=== PATIENT | male | born 1970 | race African-American/Black ===

== ENCOUNTER 2016-07-03 10:58 | Emergency (ER) | payer OTHER ==
[~2016-07-03] VITALS: Ht 170.2 cm; Wt 96.5 kg
[2016-07-03 11:01] VITALS: Ht 170.2 cm; Wt 96.5 kg
[2016-07-03] MEDS ORDERED: LIDOCAINE/MYLANTA 40 ML BTL PO STA (11:30)
--- NOTE | 2016-07-03 11:36 | ERD ---
ER Documentation Chief Complaint Date/Time DATE: 07/03/16 TIME: 11:35 Chief Complaint upper abdominal pain this morning HPI 45-year-old male complains of upper abdominal pain associated with nausea, vomiting and diarrhea that started last night. He states that he had eaten some fish and chicken the yesterday, and subsequently had episodes of nausea vomiting that were nonbloody nonbilious. He states he has a history of gastritis and usually takes Carafate and Zofran prescribed by a different emergency department. He denies any fevers, chest pain, shortness of breath. No blood or dark stools. He does report a history of drinking about a pint daily. ROS All systems reviewed and are negative except as per history of present illness. Medications Home Meds Active Scripts Ranitidine Hcl* (Zantac*) 150 Mg Tablet, 150 MG PO BID Y for EPIGASTRIC PAIN, # 30 TAB Prov:PARUL ROA PA-C 07/03/16 Hydrocodone/Acetaminophen ([place] 5-325 Tablet) 1 Each Tablet, 1 TAB PO Q6H Y for PAIN, #7 TAB Prov:PARUL ROA PA-C 07/03/16 PMhx/Soc Medical and Surgical Hx: pt denies Medical Hx, pt denies Surgical Hx Hx Alcohol Use: No Hx Substance Use: No Hx Tobacco Use: No Smoking Status: Never smoker Physical Exam Vitals Vital Signs Date Time Temp Pulse Resp B/P Pulse Ox O2 Delivery O2 Flow Rate FiO2 07/03/16 11:01 98.6 101 20 123/79 97 Physical Exam General: Well-developed, well-nourished. The patient appears in no acute distress. HEENT: Head is normocephalic, atraumatic. No scleral icterus. Neck: Supple. Nontender. Lungs: Clear to auscultation. Normal air movement. Heart: Regular rate and rhythm. S1 and S2 are normal. No murmurs, gallops, or rubs. Abdomen: Soft, mid abdomen is tender nondistended. Bowel sounds are normoactive. There is no rebound or guarding. No McBurney's tenderness, negative Hernandez sign. Extremities: No clubbing or cyanosis. Normal pulses. Moving extremities x 4. No weakness. Neurologic: Alert and oriented 3. No focal deficits. Skin: Normal turgor. No rash or lesions. Result Diagram: 07/03/16 1150 07/03/16 1150 Results 24 hrs Laboratory Tests Test 07/03/16 11:50 White Blood Count 7.910^3/ul Red Blood Count 5.0910^6/ul Hemoglobin 15.3g/dl Hematocrit 45.1% Mean Corpuscular Volume 88.6fl Mean Corpuscular Hemoglobin 30.1pg Mean Corpuscular Hemoglobin Concent 33.9g/dl Red Cell Distribution Width 14.4% Platelet Count 57875^3/UL Mean Platelet Volume 10.1fl Neutrophils % 76.9% Lymphocytes % 16.2% Monocytes % 6.2% Eosinophils % 0.1% Basophils % 0.5% Nucleated Red Blood Cells % 0.0/100WBC Neutrophils # 6.110^3/ul Lymphocytes # 1.310^3/ul Monocytes # 0.510^3/ul Eosinophils # 0.010^3/ul Basophils # 0.010^3/ul Nucleated Red Blood Cells # 0.010^3/ul Urine Color LT. YELLOW Urine Clarity CLEAR Urine pH 6.0 Urine Specific [place] 1.025 Urine Ketones 15 Urine Nitrite NEGATIVE Urine Bilirubin NEGATIVE Urine Urobilinogen 0.2 E.U./dL Urine Leukocyte Esterase NEGATIVE Urine Microscopic RBC 2-5/HPF Urine Microscopic WBC 0-2/HPF Urine Hemoglobin TRACE Urine Glucose NEGATIVE% Urine Total Protein TRACE Sodium Level 137mmol/L Potassium Level 4.0mmol/L Chloride Level 103mmol/L Carbon Dioxide Level 23mmol/L Anion Gap 15 Blood Urea Nitrogen 11mg/dl Creatinine 1.10mg/dl Glucose Level 102mg/dl Calcium Level 9.4mg/dl Total Bilirubin 0.7mg/dl Direct Bilirubin 0.00mg/dl Indirect Bilirubin 0.7mg/dl Aspartate Amino Transf (AST/SGOT) 49IU/L Alanine Aminotransferase (ALT/SGPT) 45IU/L Alkaline Phosphatase 80IU/L Total Protein 8.6g/dl Albumin 4.7g/dl Globulin 3.90g/dl Albumin/Globulin Ratio 1.20 Lipase 47U/L Current Medications Medications (Trade) Dose Ordered Sig/Efrain Route PRN Reason Start Time Stop Time Status Last Admin Dose Admin Miscellaneous Medication (Gi Cocktail (2)) 40 ml ONCE STAT PO 07/03/16 11:30 07/03/16 11:33 DC 07/03/16 11:43 Acetaminophen/ Hydrocodone Bitart ([place] (5/325)) 1 tab ONCE ONCE PO 07/03/16 14:00 07/03/16 14:01 DC 07/03/16 13:57 Famotidine (Pepcid) 20 mg ONCE ONCE PO 07/03/16 14:00 07/03/16 14:01 DC 07/03/16 13:57 Procedures/MDM ED course: Patient was given GI cocktail, labs and urine were obtained. He has continued to have pain, and therefore was given [place], which when he states that he is feeling much better at this time and is ready to be discharged. MDM: 45-year-old male comes in with upper abdominal pains, nausea, vomiting diarrhea for the past day, likely gastroenteritis. Initially was given a GI cocktail, did continue to complain of pain and therefore he was given [place] as well as Pepcid and states that he is feeling much better at this time. His labs are unremarkable, there is no leukocytosis, no transaminitis that is significant, and no pancreatitis. The patient's abdominal examination shows mid abdominal pain and epigastric pain, nonspecific. Clinically does not appear to show any signs of an acute surgical abdominal process, include including acute appendicitis, bowel obstruction, intra-abdominal abscess, perforation, acute hepatobiliary process. He will be given a short course of [place] secondary to his pain, to supplement as well as ranitidine, and Zofran to continue as needed. Departure Diagnosis: Primary Impression: Abdominal pain Condition: PARUL Lujan PA-C July 03, 2016 11:36
[2016-07-03 12:12] LABS: ADD SCAN DIFF NO
[2016-07-03 12:13] LABS: BASOPHILS % 0.5 % (0.0-2.0); EOSINOPHILS % 0.1 % (0.0-7.0); HEMATOCRIT 45.1 % (42.0-52.0); HEMOGLOBIN 15.3 g/dl (14.0-18.0); LYMPHOCYTES # 1.3 10^3/ul (0.8-2.9); LYMPHOCYTES % 16.2 % (15.0-51.0); MEAN CORPUSCULAR HEMOGLOBIN 30.1 pg (29.0-33.0); MEAN CORPUSCULAR HGB CONC 33.9 g/dl (32.0-37.0); MEAN CORPUSCULAR VOLUME 88.6 fl (82.0-101.0); MEAN PLATELET VOLUME 10.1 fl (7.4-10.4); MONOCYTE # 0.5 10^3/ul (0.3-0.9); MONOCYTES % 6.2 % (0.0-11.0); NEUTROPHIL # 6.1 10^3/ul (1.6-7.5); NEUTROPHILS % 76.9 % (39.0-77.0); PLATELET COUNT 226 10^3/UL (140-415); RED BLOOD COUNT 5.09 10^6/ul (4.70-6.10); RED CELL DISTRIBUTION WIDTH 14.4 % (11.5-14.5); WHITE BLOOD COUNT 7.9 10^3/ul (4.8-10.8)
[2016-07-03 12:38] LABS: ADD UMIC YES; URINE BILIRUBIN (Dip) NEGATIVE (NEGATIVE); URINE BLOOD (Dip) TRACE (NEGATIVE); URINE COLOR LT. YELLOW (YELLOW); URINE GLUCOSE (Dip) NEGATIVE (NEGATIVE); URINE KETONES (Dip) 15 (NEGATIVE); URINE LEUKOCYTE ESTERASE (Dip) NEGATIVE (NEGATIVE); URINE NITRITE (Dip) NEGATIVE (NEGATIVE); URINE TOTAL PROTEIN (Dip) TRACE (NEGATIVE); URINE UROBILINOGEN (Dip) 0.2 E.U./dL (0.1-1.0)
[2016-07-03 12:44] LABS: ALBUMIN 4.7 g/dl (3.3-4.9); ALBUMIN/GLOBULIN RATIO 1.2; BILIRUBIN,INDIRECT 0.7 mg/dl (0-1.1); BILIRUBIN,TOTAL 0.7 mg/dl (0.2-1.3); CALCIUM 9.4 mg/dl (8.4-10.2); CREATININE 1.1 mg/dl (0.61-1.24); TOTAL PROTEIN 8.6 g/dl (6.1-8.1)
[2016-07-03] MEDS ORDERED: FAMOTIDINE 20 MG TAB PO ONE (14:00)
[2016-07-03] MEDS ORDERED: HYDROCODONE/APAP (5/325) TAB PO ONE (14:00)
[2016-07-03] MEDS ORDERED: HYDR-906 PO (14:08)
[2016-07-03] MEDS ORDERED: RANI150T9 PO (14:08)
== END 2016-07-03 14:23 | disposition home or self-care (01) ==
LOC: FTE 10:58
DX: R10.10 Upper abdominal pain, unspecified (principal)
CPT/HCPCS: 36415; 80053; 81001; 83690; 85025; Z7502; Z7610; 81003; 99283